=== PATIENT | female | born 1950 ===

== ENCOUNTER 2018-02-05 08:10 | Day surgery (SDC) | payer OTHER | END 2018-02-05 13:55 | disposition home or self-care (01) | LOC: AMB-ENDOS 08:10 | DX: D12.2 Benign neoplasm of ascending colon (principal); K64.1 Second degree hemorrhoids ==

== ENCOUNTER 2019-03-18 09:00 | Day surgery (SDC) | payer OTHER | END 2019-03-18 14:00 | disposition home or self-care (01) | LOC: AMB-ENDOS 09:00 | DX: K57.32 Diverticulitis of large intestine without perforation or abscess without bleeding (principal); K64.1 Second degree hemorrhoids; K64.8 Other hemorrhoids ==